=== PATIENT | male | born 1975 | race Caucasian/White ===

== ENCOUNTER 2019-10-21 14:20 | Emergency (ER) | payer SELFPAY ==
[2019-10-21] MEDS ORDERED: Iopamidol 612 MG/ML 100 ML Bottle IVPUSH STA (14:32)
[2019-10-21 14:52] LABS: CHLORIDE,CL 106 mmol/L (98-107); SODIUM,NA 141 mmol/L (136-145)
[2019-10-21] MEDS: LORazepam 2 MG/ML SDV IVPUSH ONE (15:24)
[2019-10-21] MEDS: Sodium Chloride 0.9% 1,000 ML IV SCH (15:37)
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
== END 2019-10-21 16:40 ==
LOC: LL.ED 14:20
DX: S27.0XXA Traumatic pneumothorax, initial encounter (principal); S22.42XA Multiple fractures of ribs, left side, initial encounter for closed fracture; S32.811A Multiple fractures of pelvis with unstable disruption of pelvic ring, initial encounter for closed fracture; Z88.0 Allergy status to penicillin; V43.52XA Car driver injured in collision with other type car in traffic accident, initial encounter
CPT/HCPCS: 36415; 70450; 71250; 72125; 74176; 80053; 80307; 83690; 85025; 96361; 96374; 99285; J2060; J7030